=== PATIENT | female | born 1955 | race Caucasian/White ===

== ENCOUNTER → 2017-07-27 | Outpatient (CLI) | payer BC | END | disposition home or self-care (01) | LOC: GMA 14:21 | PROVIDERS: ATTEND Physician Assistant | DX: N30.00 Acute cystitis without hematuria (principal) ==

== ENCOUNTER → 2017-10-22 | Outpatient (CLI) | payer BC ==
--- NOTE | 2017-10-26 09:43 | MAM ---
EXAM DESCRIPTION: 3D Screening BILATERAL : Digital Mammography. CLINICAL HISTORY: 62 years Female SCREENING . No complaints . Remote family history of breast cancer. Postmenopausal. No HRT. COMPARISON: 2-D digital screening bilateral study 08/27/2016 and 08/15/2015. Report from prior examination also reviewed. TECHNIQUE: Bilateral CC and MLO projection full-field images, 3-D tomosynthesis digital mammographic technique. Also bilateral synthesized CC/ MLO full-field images. CAD not utilized. FINDINGS: The breast parenchymal density pattern is: Scattered areas of fibroglandular density. No skin thickening or nipple retraction bilateral solitary parenchymal calcifications. No focal, stellate mass or density, focal asymmetry , and no suspicious microcalcifications bilaterally Stable mammograms compared to prior study, taking into account differences in mammographic technique IMPRESSION: BI-RADS CATEGORY: 2 - BENIGN FINDINGS. FOLLOW UP: Routine digital bilateral screening, one year interval from October 2017. Written communication explaining the IMPRESSION and follow-up, will be mailed to the patient and referring health care provider. According to the [employer], yearly mammograms are recommended starting at age 40 and continuing as long as a woman is in good health. Any breast change noted on a breast self-exam should be reported promptly to the patient's healthcare provider. Breast MRI is recommended for women with an approximately 20-25% or greater lifetime risk of breast cancer, including women with a strong family history of breast or ovarian cancer and women who have been treated for Hodgkin's disease. A negative mammographic report should not delay tissue diagnosis in patients with significant clinical history or physical findings. Extremely dense breast tissue limits the sensitivity of digital mammography. Electronically signed by: Jose Santoyo MD 10/26/2017 9:42 AM [facility]
== END ==
LOC: MAMMO 13:47
PROVIDERS: ATTEND Family Medicine
DX: Z12.31 Encounter for screening mammogram for malignant neoplasm of breast (principal)

== ENCOUNTER → 2018-05-11 | Outpatient (CLI) | payer BC | LOC: LAB.O 13:43 | PROVIDERS: ATTEND Internal Medicine | DX: I74.9 Embolism and thrombosis of unspecified artery (principal) ==

== ENCOUNTER → 2018-05-18 | Outpatient (CLI) | payer BC | LOC: LAB.O 08:43 | PROVIDERS: ATTEND Internal Medicine | DX: I74.9 Embolism and thrombosis of unspecified artery (principal) ==

== ENCOUNTER → 2018-06-01 | Outpatient (CLI) | payer BC | LOC: LAB.O 08:32 | PROVIDERS: ATTEND Internal Medicine | DX: I74.9 Embolism and thrombosis of unspecified artery (principal); D64.9 Anemia, unspecified ==

== ENCOUNTER → 2018-06-15 | Outpatient (CLI) | payer BC | LOC: LAB.O 15:48 | PROVIDERS: ATTEND Internal Medicine | DX: D50.9 Iron deficiency anemia, unspecified (principal); D64.9 Anemia, unspecified; I74.9 Embolism and thrombosis of unspecified artery ==

== ENCOUNTER → 2018-06-29 | Outpatient (CLI) | payer BC | LOC: LAB.O 13:38 | PROVIDERS: ATTEND Internal Medicine | DX: I74.9 Embolism and thrombosis of unspecified artery (principal); D64.9 Anemia, unspecified ==

== ENCOUNTER → 2018-07-13 | Outpatient (CLI) | payer BC ==
--- NOTE | 2018-07-13 11:31 | CT ---
EXAM DESCRIPTION: CTA Chest: Computed Tomography. CLINICAL HISTORY: Arterial embolism COMPARISON: Chest CT scan with IV contrast January 25, 2018. TECHNIQUE: Spiral-axial scans at 2.5 x 2.5 mm intervals through the pulmonary arteries and chest after bolus infusion of IV contrast. Lung algorithm _1.25 x 2.5-mm axial reconstructions. Coronal and sagittal 2.0 Mm reconstructions. 15.0 mm PE oblique 3-D reformatted images. No adverse reactions. Total Exam DLP: 806.47 mGy-cm. This exam was performed according to our departmental CT dose-optimization program which includes automated exposure control, adjustment of the mA and/or kV according to patient size and/or use of iterative reconstruction technique; to reduce radiation dose to as low as reasonably achievable (ALARA). FINDINGS: Contrast is well demonstrated in the pulmonary artery system bilaterally. Question of partial filling defect representing thrombus in the right upper lobe pulmonary artery medial branch. No other filling defects are seen bilaterally. No abnormalities are seen in the right apical or anterior segment lung parenchyma supplied by this branch. Minimal atherosclerotic calcification in the remaining great vessels and proximal brachiocephalic vessels. No significant narrowing or aneurysm of the aorta. Coronary artery calcifications. Lungs and airways: Minimal scarring in the bilateral lung bases and in the inferior lingula. Also inferior medial segment of the right middle lobe. No abnormal nodules or infiltrates. Mediastinum and chandra: 1.1 cm short axis lymph node right hilum. No soft tissue masses or significant lymph nodes. Chest wall, base of neck, and axilla soft tissues: Unremarkable. Upper abdomen: No free fluid in the included peritoneal space. Partial visualization of abdominal organs with no significant abnormalities. Osseous structures: Minimal spondylosis in the included thoracic spine. Bilateral sternoclavicular arthrosis. ORIF proximal left humerus. Mild dextroscoliosis. IMPRESSION: Questionable small partial thrombus in the medial branch of the right upper lobe pulmonary artery. No parenchymal abnormalities in the segments supplied by the artery. Otherwise pulmonary artery system bilaterally shows no filling defects. Parenchymal scarring in the gravity dependent segments of the lungs bilaterally. No abnormal nodules. 1.1 cm short axis lymph node in the right hilum is stable since the prior study. Electronically signed by: Jose Santoyo MD 07/13/2018 11:30 AM CDT
== END ==
LOC: CT 08:00
PROVIDERS: ATTEND Internal Medicine
DX: I26.99 Other pulmonary embolism without acute cor pulmonale (principal); I74.9 Embolism and thrombosis of unspecified artery

== ENCOUNTER → 2018-09-10 | Outpatient (CLI) | payer BC ==
--- NOTE | 2018-09-10 13:23 | CT ---
EXAM DESCRIPTION: CTA Chest: Computed Tomography. CLINICAL HISTORY: EMBOLISM AND THROMBOSIS OF UNSPECIFIED ARTERY COMPARISON: CTA chest July 13, 2018. TECHNIQUE: Spiral-axial scans at 2.5 mm intervals through the pulmonary arteries and chest after bolus infusion of IV contrast. Lung algorithm 2.5-mm axial reconstructions. Coronal and sagittal 2.0 Mm reconstructions. 10.0 mm PE oblique 3-D reformatted images. No adverse reactions. Total Exam DLP: 710.42 mGy-cm. This exam was performed according to our departmental CT dose-optimization program which includes automated exposure control, adjustment of the mA and/or kV according to patient size and/or use of iterative reconstruction technique; to reduce radiation dose to as low as reasonably achievable (ALARA). FINDINGS: The contrast in the apical segment right upper lobe pulmonary artery branch is slightly obscured by beam hardening artifact in the superior vena cava, but is interpreted to contain NO embolism. Caliber is similar to the contralateral left upper lobe pulmonary artery apical segment branch vessel. Main pulmonary artery, right and left pulmonary arteries and bilateral pulmonary artery branch vessels to the level of the subsegmental branches are well demonstrated with contrast bilaterally with no filling defects. Minimal atherosclerotic calcification in the proximal brachiocephalic vessels and thoracic aorta with no aneurysm. No significant coronary artery calcifications. Lungs and airways: Minimal dependent atelectasis posteriorly. No acute pulmonary abnormalities. Mediastinal and hilar structures: Stable 1.1 cm short axis right hilar node. Other smaller right hilar nodes unremarkable. Small mediastinal nodes. Stable. Chest wall, base of neck, and axillary soft tissues tissues: Negative. Upper abdomen: Unremarkable and stable. Osseous structures: Stable since the prior study. IMPRESSION: 1. No embolus visualized in the apical segment branch of the right upper lobe pulmonary artery. This represents improvement since the prior study June 2018. No new filling defects in the pulmonary artery system bilaterally. 2. Remainder of the vascular structures, soft tissues, lungs and airways, mediastinum and chandra are stable since the prior study. Electronically signed by: Jose Santoyo MD 09/10/2018 1:21 PM [facility]
== END ==
LOC: CT 09:18
PROVIDERS: ATTEND Internal Medicine
DX: I74.9 Embolism and thrombosis of unspecified artery (principal); I26.99 Other pulmonary embolism without acute cor pulmonale

== ENCOUNTER → 2018-12-16 | Outpatient (CLI) | payer BC ==
--- NOTE | 2018-12-20 11:13 | MAM ---
EXAM DESCRIPTION: 3D Screening BILATERAL : Digital Mammography. CLINICAL HISTORY: 63 years Female SCREENING . No complaints or personal history of breast cancer. Remote family history of breast cancer. Childbirth. Postmenopausal 5 years. No HRT Lifetime risk of developing breast cancer (Tyrer-Cuzick model)(%): 7.9. COMPARISON: Bilateral screening digital breast tomosynthesis 10/22/2017. TECHNIQUE: Bilateral CC and MLO projection full-field images, digital tomosynthesis mammographic technique. Bilateral digital 2-D full-field MLO images. CAD not available for tomosynthesis or 2-D images. FINDINGS: The breast parenchymal density pattern is: Heterogeneously dense breast tissue, which may obscure small masses. No skin thickening or nipple retraction. Bilateral solitary microcalcifications. No new focal, stellate mass or density, focal asymmetry , and no suspicious microcalcifications bilaterally. Stable mammograms compared to prior study. IMPRESSION: Benign exam. BIRAD CATEGORY: 2 BENIGN FINDINGS. RECOMMENDATIONS: FOLLOW UP: Routine digital bilateral mammographic screening, one year interval from December 2018. Written communication explaining the IMPRESSION and follow-up, will be mailed to the patient and referring health care provider. The FINDINGS and the FOLLOW-UP plan were reviewed in person with the patient after the examination. According to the [employer], yearly mammograms are recommended starting at age 40 and continuing as long as a woman is in good health. Any breast change noted on a breast self-exam should be reported promptly to the patient's healthcare provider. Breast MRI is recommended for women with an approximately 20-25% or greater lifetime risk of breast cancer, including women with a strong family history of breast or ovarian cancer and women who have been treated for Hodgkin's disease. A negative mammographic report should not delay tissue diagnosis in patients with significant clinical history or physical findings. Extremely dense breast tissue limits the sensitivity of digital mammography. Electronically signed by: Jose Santoyo MD 12/20/2018 11:10 AM CDT
== END ==
LOC: MAMMO 10:00
PROVIDERS: ATTEND Family Medicine
DX: Z12.31 Encounter for screening mammogram for malignant neoplasm of breast (principal)

== ENCOUNTER → 2020-01-25 | Outpatient (CLI) | payer MEDICARE, OTHER | LOC: GMA MATASK 11:25 | PROVIDERS: ATTEND Family Medicine | DX: I10 Essential (primary) hypertension (principal); E03.9 Hypothyroidism, unspecified ==

== ENCOUNTER → 2020-05-25 | Outpatient (CLI) | payer MEDICARE, OTHER ==
--- NOTE | 2020-05-28 13:50 | MAM ---
EXAM DESCRIPTION: 3D Screening BILATERAL : Digital Mammography. CLINICAL HISTORY: 64 years Female ROUTINE SCREEN . No complaints. Remote family history of breast cancer. Menarche age 10. Childbirth age 25. Menopause age unknown. No HRT. Lifetime risk of developing breast cancer (Tyrer-Cuzick model)(%): 7.6. COMPARISON: Bilateral screening digital breast tomosynthesis December 2018 and October 2017. TECHNIQUE: Bilateral CC and MLO projection full-field images, digital tomosynthesis mammographic technique. Bilateral digital 2-D full-field MLO images. CAD available for 2-D images. FINDINGS: The breast parenchymal density pattern is: Heterogeneously dense breast tissue, which may obscure small masses. No skin thickening or nipple retraction. Posterior skin mole marker right breast. Solitary microcalcifications. Stable Focal asymmetry anterior third left breast at 6:00, compared to 2018.. No new focal, stellate mass or density, focal asymmetry , and no suspicious microcalcifications bilaterally. IMPRESSION: Benign exam. BIRAD CATEGORY: 2 BENIGN FINDINGS. RECOMMENDATIONS: FOLLOW UP: Routine digital bilateral mammographic screening, one year interval from May 2020. Written communication explaining the IMPRESSION and follow-up, will be mailed to the patient and referring health care provider. According to the [employer], yearly mammograms are recommended starting at age 40 and continuing as long as a woman is in good health. Any breast change noted on a breast self-exam should be reported promptly to the patient's healthcare provider. Breast MRI is recommended for women with an approximately 20-25% or greater lifetime risk of breast cancer, including women with a strong family history of breast or ovarian cancer and women who have been treated for Hodgkin's disease. A negative mammographic report should not delay tissue diagnosis in patients with significant clinical history or physical findings. Extremely dense breast tissue limits the sensitivity of digital mammography. Electronically signed by: Jose Santoyo MD 05/28/2020 1:48 PM CDT
== END ==
LOC: MAMMO 10:30
PROVIDERS: ATTEND Family Medicine
DX: Z12.31 Encounter for screening mammogram for malignant neoplasm of breast (principal)